=== PATIENT | male | born 1970 | race Caucasian/White ===

== ENCOUNTER 2018-04-19 13:16 | Emergency (ER) | payer OTHER ==
[~2018-04-19] VITALS: Ht 180.3 cm; Wt 81.3 kg
[2018-04-19] MEDS ORDERED: MOTRIN600 MG PO (14:59)
[2018-04-19 15:20] VITALS: BP 135/83
== END 2018-04-19 15:20 | disposition home or self-care (01) ==
LOC: EME 13:16
DX: M25.511 Pain in right shoulder (principal); M79.601 Pain in right arm; M54.2 Cervicalgia; F17.200 Nicotine dependence, unspecified, uncomplicated
CPT/HCPCS: 73030; 99281; 99284